=== PATIENT | male | born 1960 | race Caucasian/White ===

== ENCOUNTER 2018-05-14 06:27 | Day surgery (SDC) | payer OTHER ==
[2018-05-11 16:32] VITALS: BMI 29.0
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
[2018-05-14] MEDS ORDERED: KETAMINE HCL 500 MG/10 ML VIAL ONE (08:29)
[2018-05-14 08:38] LABS: BASO % 0.4 % (0-2.0); EOS % 1.5 % (0-4.5); HEMATOCRIT 41.2 % (35.4-49); HEMOGLOBIN 12.8 GM/dl (11.7-16.9); LYMPH % 30.3 % (8-40); MCH 26.9 pg (25.7-33.7); MCHC 31.2 g/dl (32.0-35.9); MEAN CELL VOLUME 86.1 fl (80-96); MEAN PLT VOLUME 8.7 fl (7.5-11.1); MONO % 8.4 % (3.8-10.2); NEUT % 59.4 % (42.8-82.8); PLATELET COUNT 218 K/MM3 (134-434); RBC 4.78 M/mm3 (4.00-5.60); RDW 13.4 % (11.9-15.9); WHITE BLOOD COUNT 5.5 K/mm3 (4.0-10.8)
[2018-05-14 08:51] LABS: ALBUMIN 3.9 g/dl (3.4-5.0); ALK PHOS 115 U/L (45-117); ANION GAP 8 MMOL/L (8-16); BILIRUBIN,TOTAL 0.3 mg/dl (0.2-1); BLOOD UREA NITROGEN 16 mg/dl (7-18); CALCIUM 9.8 mg/dl (8.5-10); CHLORIDE 111 mmol/L (98-107); CO2 23 mmol/L (21-32); CREATININE 1.2 mg/dl (0.55-1.3); GLUCOSE,RANDOM 105 mg/dl (74-106); MAGNESIUM 2.3 mg/dL (1.8-2.4); POTASSIUM 4.1 mmol/L (3.5-5.1); SGOT/AST 15 U/L (15-37); SGPT/ALT 17 U/L (13-61); SODIUM 142 mmol/L (136-145); TOT PROT 6.5 g/dl (6.4-8.2)
[2018-05-14 10:24] VITALS: TEMP 98.6
[2018-05-14 10:25] VITALS: BP 129/61; PULSE 74
--- NOTE | 2018-05-14 11:22 | EKG ---
Test Reason : Blood Pressure : / mmHG Vent. Rate : 082 BPM Atrial Rate : 082 BPM P-R Int : 136 ms QRS Dur : 080 ms QT Int : 364 ms P-R-T Axes : 060 045 047 degrees QTc Int : 425 ms NORMAL SINUS RHYTHM NORMAL ECG NO PREVIOUS ECGS AVAILABLE Confirmed by YANCY ANDINO, LONNIE ([id number]) on 05/14/2018 11:21:49 AM Referred By: Butch Olvera Confirmed By:LONNIE HAINES MD
== END 2018-05-14 10:20 | disposition home or self-care (01) ==
LOC: FECT 06:27
PROVIDERS: ATTEND Psychiatry & Neurology Psychiatry
PROC: GZB4ZZZ Other Electroconvulsive Therapy (ICD-10-PCS; principal; 2018-05-14 07:45)
DX: F31.62 Bipolar disorder, current episode mixed, moderate (principal)
CPT/HCPCS: 36415; 80053; 80178; 83735; 85025; 90870; 93005; 94760

== ENCOUNTER 2018-05-16 05:43 | Day surgery (SDC) | payer OTHER ==
[2018-05-14 11:06] VITALS: BMI 30.7
[2018-05-16 07:38] VITALS: TEMP 98
[2018-05-16] MEDS ORDERED: KETAMINE HCL SYRINGES 150 MG/3 ML ONE (07:53)
[2018-05-16] MEDS ORDERED: MIDAZOLAM HCL 2 MG/2 ML SINGLE DOSE VIAL ONE (07:53)
[2018-05-16 11:08] VITALS: BP 110/61; PULSE 74
== END 2018-05-16 09:45 | disposition home or self-care (01) ==
LOC: FECT 05:43
PROVIDERS: ATTEND Psychiatry & Neurology Psychiatry
PROC: GZB4ZZZ Other Electroconvulsive Therapy (ICD-10-PCS; principal; 2018-05-16 07:15)
DX: F31.62 Bipolar disorder, current episode mixed, moderate (principal)
CPT/HCPCS: 90870; 94760

== ENCOUNTER 2018-05-18 05:41 | Day surgery (SDC) | payer OTHER ==
[2018-05-14 13:22] VITALS: BMI 30.7
[2018-05-18 06:49] VITALS: TEMP 98.5
[2018-05-18] MEDS ORDERED: MIDAZOLAM HCL 2 MG/2 ML SINGLE DOSE VIAL ONE (07:25)
[2018-05-18] MEDS ORDERED: KETAMINE HCL SYRINGES 150 MG/3 ML ONE (07:25)
[2018-05-18 09:17] VITALS: BP 121/69; PULSE 68
[2018-05-18] MEDS ORDERED: ONDANSETRON 4 MG/2 ML VIAL IVPUSH PRN (09:59)
[2018-05-18] MEDS ORDERED: LACTATED RINGERS SOLUTION 1,000 ML IV SCH (10:00)
== END 2018-05-18 09:30 | disposition home or self-care (01) ==
LOC: FECT 05:41
PROVIDERS: ATTEND Psychiatry & Neurology Psychiatry
PROC: GZB4ZZZ Other Electroconvulsive Therapy (ICD-10-PCS; principal; 2018-05-18 07:15)
DX: F31.9 Bipolar disorder, unspecified (principal)
CPT/HCPCS: 90870; 94760

== ENCOUNTER 2018-05-31 05:43 | Day surgery (SDC) | payer OTHER ==
[2018-05-31 06:45] VITALS: BMI 31.9
[2018-05-31] MEDS ORDERED: KETAMINE HCL SYRINGES 150 MG/3 ML ONE (07:04)
[2018-05-31] MEDS ORDERED: MIDAZOLAM HCL 2 MG/2 ML SINGLE DOSE VIAL ONE (07:04)
[2018-05-31 08:33] VITALS: TEMP 98
[2018-05-31 10:34] VITALS: BP 120/66
[2018-05-31 10:37] VITALS: PULSE 78
== END 2018-05-31 09:20 | disposition home or self-care (01) ==
LOC: FECT 05:43
PROVIDERS: ATTEND Psychiatry & Neurology Psychiatry
PROC: GZB4ZZZ Other Electroconvulsive Therapy (ICD-10-PCS; principal; 2018-05-31 07:00)
DX: F31.9 Bipolar disorder, unspecified (principal)
CPT/HCPCS: 90870; 94760

== ENCOUNTER 2018-06-01 05:43 | Day surgery (SDC) | payer OTHER ==
[2018-06-01 06:57] VITALS: BMI 31.9
[2018-06-01] MEDS ORDERED: KETAMINE HCL SYRINGES 150 MG/3 ML ONE (07:08)
[2018-06-01] MEDS ORDERED: MIDAZOLAM HCL 2 MG/2 ML SINGLE DOSE VIAL ONE (07:28)
[2018-06-01] MEDS ORDERED: ONDANSETRON 4 MG/2 ML VIAL IVPUSH PRN (07:50)
[2018-06-01] MEDS ORDERED: oxyCODONE HCL 5 MG TABLET PO PRN (07:50)
[2018-06-01 09:34] VITALS: TEMP 97.8
[2018-06-01 09:36] VITALS: BP 103/63; PULSE 64
== END 2018-06-01 09:30 | disposition home or self-care (01) ==
LOC: FECT 05:43
PROVIDERS: ATTEND Psychiatry & Neurology Psychiatry
PROC: GZB4ZZZ Other Electroconvulsive Therapy (ICD-10-PCS; principal; 2018-06-01 07:00)
DX: F31.89 Other bipolar disorder (principal)
CPT/HCPCS: 90870; 94760

== ENCOUNTER 2018-06-04 05:40 | Day surgery (SDC) | payer OTHER ==
[2018-06-04 06:48] VITALS: TEMP 97.8; BMI 31.9
[2018-06-04] MEDS ORDERED: MIDAZOLAM HCL 2 MG/2 ML SINGLE DOSE VIAL ONE (07:07)
[2018-06-04] MEDS ORDERED: KETAMINE HCL SYRINGES 150 MG/3 ML ONE (07:07)
[2018-06-04 08:46] VITALS: BP 123/75; PULSE 73
== END 2018-06-04 09:15 | disposition home or self-care (01) ==
LOC: FECT 05:40
PROVIDERS: ATTEND Psychiatry & Neurology Psychiatry
PROC: GZB4ZZZ Other Electroconvulsive Therapy (ICD-10-PCS; principal; 2018-06-04 07:00)
DX: F31.62 Bipolar disorder, current episode mixed, moderate (principal)
CPT/HCPCS: 90870; 94760

== ENCOUNTER 2018-06-06 05:37 | Day surgery (SDC) | payer OTHER ==
[2018-06-06 06:53] VITALS: BMI 31.9
[2018-06-06] MEDS ORDERED: KETAMINE HCL SYRINGES 150 MG/3 ML ONE (07:06)
[2018-06-06] MEDS ORDERED: MIDAZOLAM HCL 2 MG/2 ML SINGLE DOSE VIAL ONE (07:11)
[2018-06-06 08:33] VITALS: TEMP 97.8
[2018-06-06 09:02] VITALS: BP 113/66; PULSE 66
== END 2018-06-06 09:25 | disposition home or self-care (01) ==
LOC: FECT 05:37
PROVIDERS: ATTEND Psychiatry & Neurology Psychiatry
PROC: GZB4ZZZ Other Electroconvulsive Therapy (ICD-10-PCS; principal; 2018-06-06 07:15)
DX: F31.62 Bipolar disorder, current episode mixed, moderate (principal)
CPT/HCPCS: 90870; 94760

== ENCOUNTER 2018-07-05 05:44 | Day surgery (SDC) | payer OTHER ==
[2018-06-26 17:35] VITALS: BMI 31.9
[2018-07-05] MEDS ORDERED: MIDAZOLAM HCL 2 MG/2 ML SINGLE DOSE VIAL ONE (08:06)
[2018-07-05] MEDS ORDERED: KETAMINE HCL SYRINGES 150 MG/3 ML ONE (08:06)
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
[2018-07-05 10:26] VITALS: PULSE 63; TEMP 98.2
[2018-07-05 10:27] VITALS: BP 114/60
== END 2018-07-05 10:20 | disposition home or self-care (01) ==
LOC: FECT 05:44
PROVIDERS: ATTEND Psychiatry & Neurology Psychiatry
PROC: GZB4ZZZ Other Electroconvulsive Therapy (ICD-10-PCS; principal; 2018-07-05 08:00)
DX: F31.89 Other bipolar disorder (principal)
CPT/HCPCS: 90870; 94760

== ENCOUNTER 2018-07-06 05:44 | Day surgery (SDC) | payer OTHER ==
[2018-06-26 17:38] VITALS: BMI 31.9
[2018-07-06 06:49] VITALS: TEMP 97.7
[2018-07-06] MEDS ORDERED: KETAMINE HCL 500 MG/10 ML VIAL ONE (07:23)
[2018-07-06] MEDS ORDERED: MIDAZOLAM HCL 2 MG/2 ML SINGLE DOSE VIAL ONE (07:23)
[2018-07-06 09:53] VITALS: BP 119/65; PULSE 69
== END 2018-07-06 10:15 | disposition home or self-care (01) ==
LOC: FECT 05:44
PROVIDERS: ATTEND Psychiatry & Neurology Psychiatry
PROC: GZB4ZZZ Other Electroconvulsive Therapy (ICD-10-PCS; principal; 2018-07-06 07:00)
DX: F33.2 Major depressive disorder, recurrent severe without psychotic features (principal)
CPT/HCPCS: 90870; 94760

== ENCOUNTER 2019-01-03 05:45 | Day surgery (SDC) | payer OTHER ==
[2019-01-03 07:56] VITALS: TEMP 98.2; BMI 31.2
--- NOTE | 2019-01-03 09:06 | HP ---
Admitting History and Physical - Admission Chief Complaint: present for ECT therapy History of Present Illness: 58 yrs old man ex smoker PAD s/p RT SFA stent 2006 at [facility] on Lipitor non complaint with ASA, Bipolar Depressive disorders H/O ECT last was in July 2018 , today present for ECT therapy denies any chest pain, SOB, Palpitation, , SERVIN, PND or orthopnea, no exertional chest pain , occasional Rt LE clarification. History Source: Patient - Past Medical History Cardiovascular: Yes: Other (PAD) Psych: Yes: Bipolar, Depression - Past Surgical History Additional Past Surgical History: Rt SFA stent - Smoking History Smoking history: Former smoker Have you smoked in the past 12 months: No If you are a former smoker, when did you quit?: 2012 - Alcohol/Substance Use Hx Alcohol Use: No - Social History Usual Living Arrangement: Yes: Alone ADL: Independent History of Recent Travel: No Home Medications - Allergies Allergies/Adverse Reactions: Allergies Allergy/AdvReac Type Severity Reaction Status Date / Time No Known Allergies Allergy Verified 05/16/18 15:52 - Home Medications Home Medications: Ambulatory Orders Lamotrigine [Lamictal Xr] 200 mg PO HS 05/11/18 [place] Carbonate [Eskalith -] 300 mg PO TID 05/11/18 Mirtazapine [Remeron -] 7.5 mg PO HS 05/11/18 Topiramate [Topamax] 50 mg PO HS 05/11/18 Zolpidem Tartrate [Ambien Cr] 12.5 mg PO HS PRN 05/11/18 Aripiprazole [Abilify] 5 mg PO HS 05/14/18 Propranolol HCl 10 mg PO HS 05/14/18 Metformin HCl [Glucophage] 500 mg PO BID 12/31/18 Review of Systems - Review of Systems Constitutional: denies: Chills, Diaphoresis, Fever, Lethargy, Loss of Appetite, Night Sweats, Unintentional Wgt. Loss, Weakness Eyes: denies: Blind Spots, Blurred Vision, Double Vision, Eye Pain, Floaters HENT: denies: Difficult Swallowing, Ear Discharge, Ear Pain, Epistaxis, Hearing Loss, Mouth Swelling, Nasal Congestion Neck: denies: Decreased ROM, Lumps, Pain on Movement, Stiffness Cardiovascular: denies: Chest Pain, Edema, Palpitations, Shortness of Breath Respiratory: denies: Cough, Exercise Intolerance, Hemoptysis, Orthopnea, PND, SOB on Exertion, Wheezing Gastrointestinal: denies: Abdominal Pain, Bloating, Constipation, Diarrhea Genitourinary: denies: Burning, Dysuria, Flank Pain, Frequency Musculoskeletal: denies: Back Pain, Crepitus, Decreased ROM Integumentary: denies: Bruising, Change in Color Neurological: denies: Change in LOC, Change in Speech, Confusion, Dizziness Endocrine: denies: Excessive Sweating, Flushing, Increased Hunger Hematology/Lymphatic: denies: Easily Bruised, Excessive Bleeding, Swollen Glands Psychiatric: reports: Altered Sleep Pattern, Depression. denies: Hallucinations , Panic, Paranoia, Suicidal Pain Intensity: 0 Physical Examination Vital Signs: Vital Signs Temperature 98.2 F 01/03/19 07:44 Pulse Rate 70 01/03/19 07:44 Respiratory Rate 18 01/03/19 07:44 Blood Pressure 110/66 01/03/19 07:44 O2 Sat by Pulse Oximetry (%) 97 01/03/19 07:44 Middle aged man comfortable not in distress HEENT: Mm moist, no anemia, PERRLA EOMI NECK: No JVd No Bruit CHEST: CTA B/L CVS: S1S2 R no m/g/r ABD: No distention, non tender Bs + EXT: No edema feet, pulses +, no calf tenderness PECAN MALLOW DIPPER: AOx3 non focal Labs: CBC, BMP LFTs reviewed from 12/21/2018 all are at base line Imaging - Results EKG: Report Reviewed (82 NSR nor nal intervals no ST T changes QTC 425) Problem List - Problems (1) Bipolar 1 disorder, depressed Assessment/Plan: Cont home meds and P ECT therapy as planned Problems reviewed: Yes Code(s): F31.9 - BIPOLAR DISORDER, UNSPECIFIED (2) PAD (peripheral artery disease) Assessment/Plan: Cont Sttain adv to Cont ASA as patient has Rt SFA stent. Problems reviewed: Yes Code(s): I73.9 - PERIPHERAL VASCULAR DISEASE, UNSPECIFIED Assessment/Plan 58 yrs old man with PAD s/p SFA stent Bipolar depressive disorders is here for ECT therapy no H/O seizures previously recived ECT in July 2018, patient is clinically stable no apprrent contraindication of ECT therapy . ECT therapy can be performed.
[2019-01-03] MEDS ORDERED: MIDAZOLAM HCL 2 MG/2 ML SINGLE DOSE VIAL ONE (09:12)
[2019-01-03] MEDS ORDERED: KETAMINE HCL 500 MG/10 ML VIAL ONE (09:13)
[2019-01-03 10:50] VITALS: BP 115/66; PULSE 69
--- NOTE | 2019-01-03 12:24 | EKG ---
Test Reason : Blood Pressure : / mmHG Vent. Rate : 069 BPM Atrial Rate : 069 BPM P-R Int : 138 ms QRS Dur : 076 ms QT Int : 380 ms P-R-T Axes : 057 037 032 degrees QTc Int : 407 ms NORMAL SINUS RHYTHM NORMAL ECG WHEN COMPARED WITH ECG OF 14-MAY-2018 07:13, NO SIGNIFICANT CHANGE WAS FOUND Confirmed by MI WALKER MD ([id number]) on 01/03/2019 12:24:41 PM Referred By: Butch Olvera Confirmed By:MI WALKER MD
== END 2019-01-03 11:00 | disposition home or self-care (01) ==
LOC: FECT 05:45 → FASU 05:45 → FECT 11:00
PROVIDERS: ATTEND Psychiatry & Neurology Psychiatry
PROC: GZB4ZZZ Other Electroconvulsive Therapy (ICD-10-PCS; principal; 2019-01-03 08:00)
DX: F32.9 Major depressive disorder, single episode, unspecified (principal)
CPT/HCPCS: 90870; 93005; 94760

== ENCOUNTER 2019-01-04 05:43 | Day surgery (SDC) | payer OTHER ==
[2019-01-03 10:13] VITALS: BMI 31.2
[2019-01-04] MEDS ORDERED: KETAMINE HCL 500 MG/10 ML VIAL ONE (07:11)
[2019-01-04] MEDS ORDERED: MIDAZOLAM HCL 2 MG/2 ML SINGLE DOSE VIAL ONE (07:11)
[2019-01-04 08:18] VITALS: PULSE 67; TEMP 97.8
[2019-01-04 08:50] VITALS: BP 113/66
== END 2019-01-04 08:40 | disposition home or self-care (01) ==
LOC: FECT 05:43
PROVIDERS: ATTEND Psychiatry & Neurology Psychiatry
PROC: GZB4ZZZ Other Electroconvulsive Therapy (ICD-10-PCS; principal; 2019-01-04 08:00)
DX: F25.9 Schizoaffective disorder, unspecified (principal)
CPT/HCPCS: 90870; 94760

== ENCOUNTER 2019-01-11 05:50 | Day surgery (SDC) | payer OTHER ==
[2019-01-11 06:50] VITALS: BMI 31.1
[2019-01-11] MEDS ORDERED: LACTATED RINGERS SOLUTION 1,000 ML IV SCH (08:00)
[2019-01-11] MEDS ORDERED: KETAMINE HCL 500 MG/10 ML VIAL ONE (08:17)
[2019-01-11] MEDS ORDERED: MIDAZOLAM HCL 2 MG/2 ML SINGLE DOSE VIAL ONE (08:17)
[2019-01-11 09:13] VITALS: TEMP 97.9
[2019-01-11 09:42] VITALS: BP 108/57; PULSE 83
== END 2019-01-11 09:45 | disposition home or self-care (01) ==
LOC: FECT 05:50
PROVIDERS: ATTEND Psychiatry & Neurology Psychiatry
PROC: GZB4ZZZ Other Electroconvulsive Therapy (ICD-10-PCS; principal; 2019-01-11 08:15)
DX: F31.62 Bipolar disorder, current episode mixed, moderate (principal)
CPT/HCPCS: 90870; 94760

== ENCOUNTER 2019-04-18 05:58 | Day surgery (SDC) | payer OTHER ==
[2019-04-17 16:45] VITALS: BMI 31.1
[2019-04-18] MEDS ORDERED: KETAMINE HCL 500 MG/10 ML VIAL ONE (07:33)
[2019-04-18] MEDS ORDERED: MIDAZOLAM HCL 2 MG/2 ML SINGLE DOSE VIAL ONE (07:33)
--- NOTE | 2019-04-18 08:03 | HP ---
CHIEF COMPLAINT: Bipolar disorder with depressive features PCP: Dr. Solis, [place], [place] Primary Psychiatrist: Sinan Temple Psychologist: Emelina Sorto[address] HISTORY OF PRESENT ILLNESS: 58 year-old male, with a PMH significant for peripheral arterial disease s/p right SFA stent, and bipolar disorder. He presents today for ECT. 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, vapes nicotine product Alcohol: no Drugs: no Allergies No Known Allergies Allergy (Verified 04/17/19 17:05) HOME MEDICATIONS: Home Medications Medication Instructions Recorded Lamotrigine [Lamictal Xr] 200 mg PO HS 05/11/18 [place] Carbonate [Eskalith -] 300 mg PO TID 05/11/18 Mirtazapine [Remeron -] 7.5 mg PO HS 05/11/18 Topiramate [Topamax] 50 mg PO HS 05/11/18 Zolpidem Tartrate [Ambien Cr] 12.5 mg PO HS PRN 05/11/18 Aripiprazole [Abilify] 5 mg PO HS 05/14/18 Propranolol HCl 10 mg PO HS 05/14/18 REVIEW OF SYSTEMS CONSTITUTIONAL: Absent: fever, chills, diaphoresis, generalized weakness, malaise, loss of appetite, weight change HEENT: Absent: rhinorrhea, nasal congestion, throat pain, throat swelling, difficulty swallowing, mouth swelling, ear pain, eye pain, visual changes CARDIOVASCULAR: Absent: chest pain, syncope, palpitations, irregular heart rate, lightheadedness , peripheral edema RESPIRATORY: Absent: cough, shortness of breath, dyspnea with exertion, orthopnea, wheezing, stridor, hemoptysis GASTROINTESTINAL: Absent: abdominal pain, abdominal distension, nausea, vomiting, diarrhea, constipation, melena, hematochezia GENITOURINARY: Absent: dysuria, frequency, urgency, hesitancy, hematuria, flank pain, genital pain MUSCULOSKELETAL: Absent: myalgia, arthralgia, joint swelling, back pain, neck pain SKIN: Absent: rash, itching, pallor HEMATOLOGIC/IMMUNOLOGIC: Absent: easy bleeding, easy bruising, lymphadenopathy, frequent infections ENDOCRINE: Absent: unexplained weight gain, unexplained weight loss, heat intolerance, cold intolerance NEUROLOGIC: Absent: headache, focal weakness or paresthesias, dizziness, unsteady gait, seizure, mental status changes, bladder or bowel incontinence PHYSICAL EXAMINATION Vital Signs - 24 hr 04/18/19 07:02 Temperature 98.1 F Pulse Rate 74 Respiratory 18 Rate Blood Pressure 120/65 O2 Sat by Pulse 97 Oximetry (%) GENERAL: Awake, alert, and fully oriented, in no acute distress. HEAD: Normal with no signs of trauma. EYES: Pupils equal, round and reactive to light, sclera anicteric, conjunctiva clear. LUNGS: Breath sounds equal, clear to auscultation bilaterally. No wheezes, and no crackles. No accessory muscle use. HEART: Regular rate and rhythm, normal S1 and S2 ABDOMEN: Soft, nontender, not distended MUSCULOSKELETAL: Normal range of motion at all joints. No bony deformities or tenderness. No CVA tenderness. UPPER EXTREMITIES: 2+ pulses, warm, well-perfused. No cyanosis. No clubbing. No peripheral edema. LOWER EXTREMITIES: 2+ pulses, warm, well-perfused. No calf tenderness. No peripheral edema. NEUROLOGICAL: Cranial nerves II-XII intact. Normal speech. ASSESSMENT/PLAN: 58 year-old male, with a PMH significant for peripheral arterial disease s/p right SFA stent, and bipolar disorder. He presents today for ECT. Cardiac --no cardiac history --Revised Cardiac Risk Index for Pre-Operative Risk: 0 points, 0.4% risk of major cardiac event Pulmonary --no pulmonary history Neurological --no neurological or neurosurgical history; no history of trauma Anesthesia --no reported problems with anesthesia ECT is a low risk procedure. The relative benefits of the planned procedure outweigh the relative risks for this patient at this time. Visit type - Emergency Visit Emergency Visit: No - New Patient This patient is new to me today: Yes Date on this admission: 04/18/19 - Critical Care Critical Care patient: No
[2019-04-18] MEDS ORDERED: LACTATED RINGERS SOLUTION 1,000 ML IV SCH (08:30)
[2019-04-18 09:18] VITALS: TEMP 98.4
[2019-04-18 10:03] VITALS: BP 112/76; PULSE 76
== END 2019-04-18 10:06 | disposition home or self-care (01) ==
LOC: FECT 05:58
PROVIDERS: ATTEND Psychiatry & Neurology Psychiatry
PROC: GZB4ZZZ Other Electroconvulsive Therapy (ICD-10-PCS; principal; 2019-04-18 07:15)
DX: F32.9 Major depressive disorder, single episode, unspecified (principal)
CPT/HCPCS: 90870; 94760

== ENCOUNTER 2019-04-19 06:13 | Day surgery (SDC) | payer OTHER ==
[2019-04-17 17:07] VITALS: BMI 31.1
[2019-04-19] MEDS ORDERED: KETAMINE HCL 500 MG/10 ML VIAL ONE (08:39)
[2019-04-19 09:40] VITALS: PULSE 65
[2019-04-19] MEDS ORDERED: ONDANSETRON 4 MG/2 ML VIAL IVPUSH PRN (09:46)
[2019-04-19] MEDS ORDERED: LACTATED RINGERS SOLUTION 1,000 ML IV SCH (10:00)
[2019-04-19 10:25] VITALS: BP 124/73; TEMP 98
== END 2019-04-19 10:26 | disposition home or self-care (01) ==
LOC: FECT 06:13
PROVIDERS: ATTEND Psychiatry & Neurology Psychiatry
PROC: GZB4ZZZ Other Electroconvulsive Therapy (ICD-10-PCS; principal; 2019-04-19 08:30)
DX: F31.62 Bipolar disorder, current episode mixed, moderate (principal)
CPT/HCPCS: 90870

== ENCOUNTER 2019-12-26 09:28 | Day surgery (SDC) | payer OTHER ==
--- OUTSIDE RECORDS SUMMARY | 2019-12-20 13:37 | XMS ---
:1960 Author Organization [facility] Care Team Providers Name Role Phone Leny Carreon MD Unavailable Unavailable Devin Unavailable Unavailable Devin ANDINO, Physician M Unavailable Unavailable Hillary Unavailable Unavailable Basciano, J Unavailable Unavailable Alasio, M Unavailable Unavailable Urgent Unavailable Unavailable Kike Mattson MD Unavailable Unavailable Kike Mattson MD Unavailable Unavailable Kike Mattson MD Unavailable Unavailable Kike Mattson MD Unavailable Unavailable Kike Mattson MD Unavailable Unavailable Kike Mattson MD Unavailable Unavailable Kike Mattson MD Unavailable Unavailable Kike Mattson MD Unavailable Unavailable Kike Mattson MD Unavailable Unavailable Kike Mattson MD Unavailable Unavailable Kike Mattson MD Unavailable Unavailable Kike Mattson MD Unavailable Unavailable Kike Mattson MD Unavailable Unavailable Re-disclosure Warning The records that you are about to access may contain information from federally- assisted alcohol or drug abuse programs. If such information is present, then the following federally mandated warning applies: This information has been disclosed to you from records protected by federal confidentiality rules (42 CFR part 2). The federal rules prohibit you from making any further disclosure of this information unless further disclosure is expressly permitted by the written consent of the person to whom it pertains or as otherwise permitted by 42 CFR part 2. A general authorization for the release of medical or other information is NOT sufficient for this purpose. The Federal rules restrict any use of the information to criminally investigate or prosecute any alcohol or drug abuse patient.The records that you are about to access may contain highly sensitive health information, the redisclosure of which is protected by Article 27-F of the [place] [facility] Public [facility] law. If you continue you may haveaccess to information: Regarding HIV / AIDS; Provided by facilities licensed or operated by the [facility] Office of Mental Health; or Provided by the [facility] Office for People With Developmental Disabilities. If such information is present, then the following [facility] mandated warning applies: This information has been disclosed to you from confidential records which are protected by state law. State law prohibits you from making any further disclosure of this information without the specific written consent of the person to whom it pertains, or as otherwise permitted by law. Any unauthorized further disclosure in violation of state law may result in a fine or long term sentence or both. A general authorization for the release of medical or other information is NOT sufficient authorization for further disclosure. Allergies and Adverse Reactions Type Description Substance Reaction Status Data Source(s ) Drug allergy No Known No Known [place] [facility] Medication Medication - [facility] Environmental Dust Dust Nuburtonce [facility] Allergy [facility] Miscellaneous Cats Cats Nuburtonce [facility] allergy [facility] Drug allergy No Known Allergies No Known Nuva [facility] Allergies [facility] Encounters Encounter Providers Location Date Indications Data Source(s ) Outpatient Attender: Savage 01/07/2020 [employer] [facility] Cesarig 11:30:00 AM Primary Care EST Outpatient 12/27/2019 [employer] - 10:00:00 AM Primary Care EDT Outpatient Attender: Savage 10/29/2019 [employer] Spirig 02:45:00 PM Primary Care EDT - 10/29/2019 11:59:00 PM EDT Patient discharged. Outpatient Attender: Odette 10/26/2019 04:16:00 PM NEXTGEN ([facility] Hillary EDT Medical - [facility] Medical [facility]) Outpatient Attender: Julián 10/24/2019 09:50:00 AM NEXTGEN ([facility] BascianoReferrer: EDT Medical - [place] Jone Gallego Medical [facility]) BascianoConsultant: Care Urgent Outpatient 10/18/2019 12:00:00 PM [facility] EDT - 10/18/2019 Primary Care 11:59:00 PM EDT Patient discharged. Outpatient Attender: Physician 09/02/2019 08:17:[address] [facility] Devin MDAdmitter: EDT - 09/02/2019 Ashwin Benitez Physician Savage Beltran 11:59:00 PM EDT Medical Center MDConsultant: Leny Carreon MD Patient discharged. Outpatient Attender: Physician DANIE 08/31/2019 [facility]04[facility] 08/31/2019 Heather Benitez MDAdmitter: Physician 11:59:59 PM EDT Medical Center Savage Beltran MD Patient discharged. Outpatient 08/19/2019 04:13:00 PM EDT - [facility] Primary Care 08/19/2019 11:59:00 PM EDT Patient discharged. Outpatient Attender: Nancy 08/15/2019 10:13:00 AM KEZIAGEN ([facility] Mattson MD EDT Medical [facility] [place] [facility]) Outpatient Attender: Rabia 08/15/2019 12:00:00 AM NEXTGEN ([facility] AlasioReferrer: Nancy EDT Med ica - [place] Jone Mattson MD [facility]) Outpatient Attender: Savage 08/13/2019 10:15:00 AM [facility] [employer] [facility] EDT - 08/13/2019 Primary Care 11:59:00 PM EDT Patient discharged. Outpatient Attender: Savage Beltran 08/13/2019 10:15:00 AM [employer] [facility] EDT - 08/13/2019 11:59:00 Primary Care PM EDT Patient discharged. Outpatient Attender: Savage Beltran 08/13/2019 10:15:00 AM [facility] JOYCELYN EDT - 08/13/2019 11:59:00 Primary Care PM EDT Patient discharged. Outpatient Attender: Physician 08/09/2019 09:12:03 AM [facility] Savage Beltran EDT - 08/09/2019 Heather Benitez MDAdmitter: Physician 11:59:00 PM EDT Medical Center Savage Beltran MD Patient discharged. Outpatient Attender: Nancy 02/15/2019 07:23:00 PM NEXTGEN ([facility]itz Mattson MD [facility] Medical - [facility]) Outpatient Attender: Nancy 12/30/2018 02:50:00 PM KEZIAGEN (Fitz Mattson MD EDT [facility]) Insurance Providers Payer name Policy type Policy ID Covered Covered democrat's Policy P lexus / Coverage democrat ID relationship to Cruz Inf ormation type cruz COMM [id number] Self [id number] FIDL [place] [id number] Care [place] Individual COMM [id number] Self [id number] COMM [id number] Self [id number] COMM [id number] Self [id number] COMM [id number] Self [id number] COMM [id number] Self [id number] ASAEL [id number] BR [id number] EXCHANGE ASAEL [id number] SP [id number] EXCHANGE ASAEL CARE [id number] 1 [id number] ASAEL [id number] SP [id number] EXCHANGE ASAEL [id number] SP [id number] EXCHANGE ASAEL [id number] SP [id number] EXCHANGE MAGNACARE [id number] SELF [id number] Problems, Conditions, and Diagnoses Code Display Name Description Problem Type Effective Data Dates Source(s) Z11.59 Encounter for Encounter for Diagnosis 10/24/2019 NEXTGEN screening for other laboratory testing 09:50:00 AM (Fitz viral diseases for COVID-19 virus EDT Pr dical - [facility]) N52.9 Male erectile Male erectile Diagnosis 09/02/2019 [place] dysfunction, dysfunction, 08:17:00 AM Health - unspecified unspecified EDT [facility] I73.9 Peripheral vascular Peripheral vascular Diagnosis 020 [place] disease, disease, 08:17:00 AM Health - unspecified unspecified EDT [facility] R99 Ill-defined and Ill-defined and Diagnosis 08/31/2019 Nuva nce unknown cause of unknown cause of 11:04:00 AM H ealth - mortality mortality EDT [facility] Z20.828 Contact with and Contact with and Diagnosis 08/15/2019 NE XTGEN (suspected) (suspected) 10:13:00 AM ([facility] exposure to other exposure to other EDT [facility] viral communicable viral communicable [facility]) I70.213 Atherosclerosis of Atherosclerosis of Diagnosis 0 [place] kar[place] arteries of kar[place] arteries of 09:12:00 AM Health - extremities with extremities with EDT Va ssar intermittent intermittent Brothers claudication, claudication, Medical bilateral legs bilateral legs Center Surgeries/Procedures Procedure Description Date Indications Data Source(s) OFFICE/OUTPATIENT OFFICE/OUTPATIENT 10/24/2019 NEXTG EN ([facility] VISIT EST VISIT EST 12:00:00 AM [facility]) SARS-COV-2 COVID-19 SARS-COV-2 COVID-19 08/15/2019 N EXTGEN ([facility] AP HTTA AP HTTA 12:00:00 AM [facility]) Results ID Date Data Source [id number] 11/25/2019 02:30:00 PM EDT [facility] Name Value Range Interpretation Code Description Data Janel rce(s) Supporting Document(s ) SARS-COV-2 [facility] RESP Diagnostics QL ARTURO+PROBE This lab was ordered by [facility] and reported by [employer] [facility] University[facility]elsea. ID Date Data Source [id number] 10/24/2019 10:11:00 AM EDT [facility] Name Value Range Interpretation Code Description Data Janel rce(s) Supporting Document(s ) COV2 [facility] This lab was ordered by [facility] and reported by Nabto Jean Marie. ID Date Data Source [id number] 09/11/2019 11:28:00 AM EDT [facility] Name Value Range Interpretation Description Data Sup porting Code Source(s) Document(s ) SARS [facility] coronavirus 2 RNA This lab was ordered by [facility] See green d reported by [facility]. ID Date Data Source [id number] 09/02/2019 12:23:00 PM EDT [facility] Patient Name: ANTOINETTE ANDINO, PAULMRN: [id number] Interventional RadiologyACCESSION EXAM DATE/TIME PROCEDURE ORDERING PROVIDER [id number] 09/02/2019 12:06 EDT IR ANGIO EX ANNALISE Devin ANDINO, Savage Escudero (Verified) MReason For Exam(IR ANGIO EX ANNALISE) PVD (peripheral vascular disease), Erectile dysfunctionReportIndication for Procedure:Preoperative Diagnosis:1. Bilateral lower extremity arterial jonatan ication2. Erectile dysfunctionPostoperative Diagnosis:SameProcedure:1.1. Ultrasound- guided axis patent right common femoral artery (hardcopy image taken saved in EM R the)2. Aortoiliac angiogram3. Left SFA/popliteal balloon angioplasty with 5 x 150 mm drug-eluting balloon4. Left common iliac artery stenting with 8 x 39 a mill imeter VBX stent5. right common iliac artery stenting with 8 x 39 mm VBX stent6. Left internal iliac artery balloon angioplasty with 3 x 40 mm balloonSurgeon(s):Savage Beltran MDAnesthesia:Local/sedationAnesthesiolog ist:Complications:NoneProcedure Performed:After all anesthetic preparati on completed both groins are prepped and draped in usual sterile manner. Timeout was taken. Under ultrasound guidance and local anesthesia we accessed a patent ri ght common femoral artery retrograde, over micropuncture sheath placed placed a Andrea tson wire subsequent 5 Honduran sheath and a flush catheter in the perirenal aorta. A ortoiliac angiogram was obtained. With a flush catheter Bentson wire negotiated t he aortic bifurcation placed the catheter in the left external iliac artery. A left l ower cineangiogram obtained. A right lower cineangiogram was obtained through the r ight femoral sheath.FINDINGS:Single renal arteries without stenosis. Infrarenal ao rta is mildly calcified without significant stenosis. Bilateral moderate to high-gra de proximal common iliac artery stenosis. Right internal iliac arteries occluded, left internal iliac artery is moderately diseased with critical stenosis to the a nterior division. External iliac arteries are patent bilaterally.Left lower cineangiog coleman shows a patent common femoral profunda femoris SFA. There is a proximal SFA jonathan nt that's patent with very mild stenosis proximally. There sequential moderate hi gh-grade stenosis and run Holger's canal and above-knee popliteal artery. Below-knee popliteal arteries patent. There is three-vessel runoff via the anterior pos terior and peroneal artery with mild disease in the anterior tibial artery.Right lowe r cineangiogram shows a patent common femoral profunda femoris and very mild disease i n the SFA. The right popliteal arteries patent. The right anterior posterior and peroneal arteries are patent.Intervention:The patient was give n 6000 IV heparin. Over an Amplatz wire we placed a 7 Honduran 45 cm destination malik th in the left SFA. We cross the lesion with a [employer] wire the SFA. We balloon angio plastied the popliteal sinus SFA lesion with a 5 x 150 mm drug-eluting balloon inflat ed for 90 seconds with excellent angiographic result.She's was withdrawn to the aortic bifurcation. Under angiographic guidance we deployed a 8 x 39 mm VBX stents in the l eft common iliac artery and the 8 x 39 mm VBX stent into the right common iliac artery both with excellent angiographic result. She's was readvanced into the left commo n iliac artery. We selected then the left internal iliac artery and its anterior b ranch with a Glidewire and a glide catheter. We exchanged to a Farrell core wire. We u sed a 3 x 60 mm balloon to balloon angioplasty anterior division of the int ernal iliac artery with excellent angiographic result no evidence of disse ction or extravasation and very brisk flow to the pelvis.We exchanged to a short 6 Raimundo nch sheath. Minx closure of the right common femoral artery was obtained with good pu ncture hemostasis.CONCLUSION:1. Bilateral common neck artery stenosis successfully stented with 8 x 39 mm VBX stents2. Sequential high-grade left SFA/popliteal stenosis successfully balloon angioplasty with a 5 x 150 mm drug-eluting balloon3. Successful balloon angioplasty of the anterior division of the left internal i liac artery with 3 x 60 mm balloon4. Right internal iliac artery occlusion5. Bilate ral three-vessel runoff.Contrast:186 cc Final Dictated: Savage Beltran MD 09/02/19 12:15Signed: Savage Beltran MD 09/02/19 12:23Transcribed by: AMS Name Value Range Interpretation Code Description Data Janel rce(s) Supporting Document(s ) ID Date Data Source [id number] 09/02/2019 10:07:00 AM EDT [facility] Ashwin Brothers [id number]} [facility] Patient: ANTOINETTE , F RANK Age: 58 years Sex: Male : 1960 Associated Diagnoses: None Author: Lauri ANDINO, Anca Betancourt Basic Information Allergies: Allergic Reactions (Selected)Severity Not Documen tedCats- No reactions were documented.Dust- No reactions were documented.No Known Me dication Allergies. Medications Current medications: (Selected) Documented Medi cationsDocumentedAmbien CR 12.5 mg oral tablet, extended release: mg, tab, Oral, QHS, 0 Refill(s)Remeron 45 mg oral tablet: mg, tab, Oral, QHS, 0 Refill(s)Topamax: 200 mg, Oral, BID, 0 Refill(s)Vraylar: Oral, Daily, 0 Refill(s)aspirin: 81 mg, Oral, Daily, 0 Refill(s)lamotrigine 200 mg oral tablet: mg, tab, Oral, BID, 0 Refill(s)l ithium 600 mg oral capsule: See Instructions, cap mg Oral TID, 0 Refill(s)propranolol: 10 mg, Oral, BID, 0 Refill(s). VS/Measurements Vital Signs 09/02/2019 8: 59 EDT Temperature Oral 97.2 DegF Systolic Blood Pressure 127 mmHg Diastolic Blood Pressure 79 mmHg Mean Arterial Pressure, Cuff 95 mmHg Peripheral Pulse Rate 69 b pm , Vital Signs (last 24 hrs) Last Charted Temp Oral 97.2 Deg F (SEP 01 08:59)Heart Rate Peripheral 69 bpm (SEP 01 08:59)SBP 127 mmHg ( 08:59)DBP 79 mmHg (SEP 01 08:59)SpO2 96 % (SEP 01 08:59)Aubreyig ht 170 cm (SEP 01 08:59)BMI 31.45 (SEP 01 08:59), Measurements from [facility] eet : Measurements 09/02/2019 8:59 EDT Clinical Weight 90.9 kg Body Mass Index Measured 31.45 kg/m2 Height/Length Measured 170 cm Past Medical History/Problems: All ProblemsBipolar 1 disorder / [id number] / ConfirmedCOPD (chronic obstructive pul monary disease) / [id number] / ConfirmedPVD (peripheral vascular disease) / [id number] / Confirmed. CRI - baseline Cr 1.3 Procedure history: Angiogram performed by Savage Beltran MD on 08/10/2010 at 49 Years.Rt knee after accident.Right ankle after accident.Left knee after accident.. 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 Former smoker Concerns about tobacco us e in household: No Type: Cigarettes Started at age: 20.0 Years Stopped at age: 53 Y earsBlood Vxfbbmpmdv65/29/2020 Blood Management Level Accepts blood. Result s review: Lab results (data) 09/02/2019 9:24 EDT WBC 5.1 x10(3)/mcL RBC 4.97 x10(6)/ mcL Hgb 13.3 gm/dL LOW Hct 41.8 % MCV 84 fL MCH 26.8 pg MCHC 31.9 gm/dL LOW R DW 13.7 % Platelet 179 x10(3)/mcL MPV 8.5 fL Glucose Lvl 109 mg/dL HI BUN 13.2 mg/dL Creatinine 1.28 mg/dL HI eGFR- AA 70 mL/min/1.73m2 eGFR-ARTURO 58 mL/min/1.73m2 LOW BUN/Creat Ratio 10.3 ratio Sodium Lvl 141 mmol/L Potassium Lvl 3.9 mmol/L Ch loride 114 mmol/L HI CO2 21 mmol/L LOW AGAP 5 Calcium Lvl 9.4 mg/dL Total Pro tein 5.9 gm/dL LOW Albumin Lvl 3.5 gm/dL Glob 2.4 gm/dL A/G Ratio 1.5 ratio 08/30 11:32 EDT COVID-19 NEGATIVE . Assessment Review of Systems Constitutio nal: No fevers, infections or nightime sweating. Cardiovascular: No changes i n METS or anginal symptoms from baseline. Pulmonary: No changes in shortness of br eath, cough, dyspnea on exertion or auxillary oxygen requirements from baseline. Gas trointestinal: No change in reflux symptoms from baseline. Hematologic: No changes in bruising or bleeding from baseline. Musculoskeletal: No changes in cervical motion instability, myalgias, or extremity range of motion from baseline. Physica l Exam Cardiovascular: Regular rate/rhythm. Respiratory: Lungs clear to auscultation bilaterally. Airway Assessment Dentition: Normal. Teeth: Normal. Airway: No ab normalities noted. Mallampati Classification: I. Anesethesia Evaluat ion Anesthesia History: Patient History No Significant History, Family History No S ignificant History. Pre-op Information Reviewed: All current medications, perti nent results/ documents reviewed. Risks / Benefits: Risks, benefits, and alternati ves discussed with patient/guardian who wishes to proceed with plan.. Mental S tatus: Alert and Oriented X3. NPO: Since midnight. Discussed Anesthesia Plan (s ): MAC. ASA Classification: III.I73.9Peripheral vascular disease, un xrkjdsyywX04.9Male erectile dysfunction, [id number], extremity, bilateral, radiological supervision and interpretation09/02/2019 08:47:09 Commen t by: Monica Aguirre scanned ins verified info got verbal consent 09/02/2019 08:35:46 Comment by: Monica Aguirre pd copay cr edit card 08:02:39 Comment by: Beryl Dunn Exch. verified, Co-Payment $10 0.00 for OP IVR. $600 rem of $1200 family ded. PE unavailable. [phone] Name Value Range Interpretation Code Description Data Janel rce(s) Supporting Document(s ) ID Date Data Source [id number] 09/02/2019 10:08:00 AM EDT [facility] Name Value Range Interpretation Code Description Data Janel rce(s) Supporting Document(s ) INR 0.9 ratio 0.9-1.2 NO [facility] Indications INRProphylaxis of venous thromo-embolism: Non-hip surgery..... ..........................1.5 - 2.5 Hip surgery................................. ..2.0 - 3.0Deep Vein Thrombosis or Pulmonary Embolism........2.0 - 3.0Prevention of s ystemic embolism in valvular heart disease, tissue prosthetic heart valvesor acute SC.......................................2.0 - 3.5Prevention of embolism in mechanical heartvalves or recurrent systemic embolism.............3.0 - 4.5 PT 10.9 second(s) 10.2-12.9 NO [facility] ID Date Data Source [id number] 09/02/2019 10:07:00 AM EDT [facility] Name Value Range Interpretation Description Data Sup porting Code Source(s) Document(s ) Glucose Lvl 109 65-99 [facility] mg/dL [facility] BUN 13.2 6.0-20.0 NO [place] mg/dL [facility] Creatinine 1.28 0.70-1.2 HI [place] mg/dL 0 [facility] BUN/Creat 10.3 7.0-29.0 NO [place] Ratio ratio [facility] Sodium Lvl 141 136-145 NO [place] mmol/L [facility] Potassium Lvl 3.9 3.5-5.1 NO [place] mmol/L [facility] Chloride 114 98-107 HI [place] mmol/L [facility] CO2 21 23-29 LO [place] mmol/L [facility] AGAP 5 5-15 NO [place] [facility] Calcium Lvl 9.4 8.6-10.0 NO [place] mg/dL [facility] Total Protein 5.9 6.0-8.3 LO [place] gm/dL [facility] Albumin Lvl 3.5 3.5-5.0 NO [place] gm/dL [facility] Glob 2.4 2.0-4.5 NO [place] gm/dL [facility] A/G Ratio 1.5 1.0-2.2 NO [place] ratio [facility] Bili Total 0.4 0.3-1.2 NO [place] mg/dL [facility] Alk Phos 72 IU/L 38-126 [facility] AST 15 IU/L 15-41 NO [facility] ALT 17 IU/L 7-40 NO [facility] ID Date Data Source [id number] 09/02/2019 10:00:00 AM EDT [facility] Added by Discern Rule GLB_ADD_GFR_CMP Name Value Range Interpretation Code Description Data Janel rce(s) Supporting Document(s ) eGFR-AA 70 >=60 NO [facility] mL/min/1.7 - [address] The MDRD 4-Variable IDMS traceable Equat ion for non- individuals is used to calculate the estimated glomerul ar filtration rate (GFR). To estimate the GFR for Americans, multiply the prov ided GFR result by 1.16. The MDRD 4-Variable IDMS traceable Equation is validated in individuals 18 years of age or older. It is less accurate in patients with extremes of muscle mass, restriction of dietary protein, ingestion of creatine, extra-re nal metabolism of creatinine, or treatment with medications that affect renal tubul ar creatinine secretion.GFR Categories in Chronic Kidney Disease (CKD)GFR Category : GFR (mL/min/1.73 m2): Interpretation: G1 90 or greater Normal or high* G2 60-89 Mild decrease*G3a 45-59 Mild to moderate [id number] 30-44 Moderate to severe decreaseG4 15-29 Severe decreaseG5 14 or less Kidney failure eGFR-ARTURO 58 mL/min/1.73m2 >=60 LO [facility] The MDRD 4-Variable IDMS traceable Equat ion for non- individuals is used to calculate the estimated glomerul ar filtration rate (GFR). To estimate the GFR for Americans, multiply the prov ided GFR result by 1.16. The MDRD 4-Variable IDMS traceable Equation is validated in individuals 18 years of age or older. It is less accurate in patients with extremes of muscle mass, restriction of dietary protein, ingestion of creatine, extra-re nal metabolism of creatinine, or treatment with medications that affect renal tubul ar creatinine secretion.GFR Categories in Chronic Kidney Disease (CKD)GFR Category : GFR (mL/min/1.73 m2): Interpretation: G1 90 or greater Normal or high* G2 60-89 Mild decrease*G3a 45-59 Mild to moderate [id number] 30-44 Moderate to severe decreaseG4 15-29 Severe decreaseG5 14 or less Kidney failure ID Date Data Source [id number] 09/02/2019 09:52:00 AM EDT [facility] Name Value Range Interpretation Description Data Sup porting Code Source(s) Document(s ) WBC 5.1 4.0-10.5 NO [facility] x[facility] RBC 4.97 4.70-6.00 NO vance x10(6)/[facility] Hgb 13.3 13.5-17.0 LO [place] gm/dL [facility] Hct 41.8 % 38.0-51.0 NO [facility] MCV 84 fL 80-98 NO [facility] MCH 26.8 pg 26.0-34.0 NO [facility] MCHC 31.9 32.0-36.0 LO [place] gm/dL [facility] RDW 13.7 % 11.0-15.0 NO [facility] Platelet 179 150-400 NO [facility] x10(3)/[facility] MPV 8.5 fL 8.5-13.0 NO [facility] [facility] ID Date Data Source [id number] 08/31/2019 11:32:00 AM EDT [facility] Name Value Range Interpretation Description Data Sup porting Code Source(s) Document(s ) SARS CoV-2 [facility] Interpretation This lab was ordered by [facility] and reported by [employer]. ID Date Data Source [id number] 08/31/2019 11:32:00 AM EDT [facility] Name Value Range Interpretation Code Description Data Janel rce(s) Supporting Document(s ) 2019-nCoV [facility] RNA XXX ARTURO+probe- Imp This lab was ordered by [facility] [employer] and reported by [facility] [employer]. ID Date Data Source [id number] 09/01/2019 03:07:00 AM EDT [facility] Name Value Range Interpretation Code Description Data Janel rce(s) Supporting Document(s ) COVID-19 NA [facility] SARS CoV-2 RNA NEGATIVE (NOT DETECTED)Ne gative results do not preclude SARS-CoV-2 infection and should notbe used as the s ole basis for patient management decisions. Negativeresults must be combined with cl inical observations, patient history,and epidemiological information. Optimum spe cimen types and timingfor peak viral levels during infections caused by SARS-CoV-2 h ave notbeen determined. Collection of multiple specimens or types ofspecimens may be necessary to detect virus. Improper specimencollection and handling, sequenc e variability under primers/probes,or organism present below the limit of dete ction may lead to falsenegative results. Positive and negative predictive values oftesting are highly dependent on prevalence. False negative testresults are more like ly when prevalence is high.The expected result is Negative (Not Detected).The SA RS-CoV-2 test is intended for the qualitative detection ofnucleic acid from SARS-CoV-2 in nasopharyngeal and oropharyngealswab samples from patients who meet COVID-19 clinical and/orepidemiological criteria. For lower respiratory tract specimens,the as say is submitted for authorization by FDA under an EmergencyUse Authorization (EUA ). Testing methodology is Real-Time PCR (RT-PCR)using high-throughput technology . If received as separate collectiondevices, nasopharyngeal and oropharyngeal specime ns are combined foranalysis.Test results must be correlated with clinical presentation andevaluated in the context of other laboratory ad epidemiologic data.This te st has not been Food and Drug Administration (FDA) cleared orapproved and has been au thorized by FDA under an Emergency UseAuthorization (EUA).[facility] [employer] is certified under the ClinicalLaboratory Improvement Amendment s of 1988 (CLIA), 42 U.S.C. [id number], to perform high complexity tests.Performing Lab : [facility] [place] [id number] Directo r:Dr. Chidi [facility] CLIA Number:[id number] ID Date Data Source [id number] 08/15/2019 12:00:00 AM EDT [facility] ([facility]) Name Value Range Interpretation Code Description Data Janel rce(s) Supporting Document(s ) COVID19 [facility] Results (On license of [facility]) This lab was ordered by [facility] and reported by [facility]. ID Date Data Source [id number] 08/09/2019 11:55:00 AM EDT [facility] Patient Name: ANTOINETTE ANDINO, PAULMRN: [id number] Computed TomographyACCESSION EXAM DATE/TIME PROCEDURE ORDERING PROVIDER [id number] 08/09/2019 09:53 EDT [facility] Abdomen Aorta Savage Beltran MD (Verified) ANNALISE Lower EXT MReason For Exam(CTA Ab domen Aorta ANNALISE Lower EXT) Atherosclerosis of [place] arteries of extremities withinter mittent claudication, bilateral legs, Erectile dysfunctionReportPROCEDURE: Com puted Tomographic Angiography Abdominal Aorta and Bilateral Iliofemoral Lower Extremit y With ContrastCLINICAL HISTORY: Peripheral vascular diseaseSCRIPT INFORMATION: athe rosclerosis of extremitiesCOMPARISON: None.TECHNIQUE:Computed Tomography Angio graphy was performed with intravenous contrast timed to maximum opacification of the arteries of the abdomen, pelvic and lower extremities. Two dimensional and t hree dimensional reconstructions were performed. Enteric contrast administered for this exam.FINDINGS:VASCULATURE:The abdominal aorta is of normal caliber. Th ere is moderate calcified and noncalcified atherosclerotic plaque without significa nt stenosis.The celiac, superior mesenteric, bilateral renal and inferior mesenteric arteries are patent with mild scattered calcified and noncalcified atheroscleros is seen.LEFT LOWER EXTREMITY:There is moderate calcified and noncalcified athe rosclerotic disease of the left common and external iliac arteries without signific ant stenosis.There is mild calcified and noncalcified atherosclerotic disease of the common femoral artery without significant stenosis. Status post stenting of the pr oximal superficial femoral artery which is widely patent. There is moderate calcifi ed and noncalcified atherosclerotic disease of the distal superficial femoral artery with multifocal moderate stenoses seen measuring up to approximately 50%. There is mild calcified and noncalcified atherosclerotic disease of the popliteal artery a focal moderate stenosis of approximately 50% at the level of the fe moral condyles. There is a mild stenosis of approximately 40% at the distal poplitea l artery just proximal to the origin of the anterior tibial artery.The popliteal tri furcation is patent.There is three-vessel runoff to the foot. Scattered atheroscle rotic calcifications are seen within the peroneal and posterior tibial arteries.R IGHT LOWER EXTREMITY:There is heavy calcified and noncalcified atherosclerotic disease of the common iliac artery resulting in mild stenosis of approximately 40%. Status po st stenting of the right external iliac artery, which is widely patent. There is moderate calcified and noncalcified atherosclerotic disease of the common fe moral artery without significant stenosis. There is mild calcified and noncalcified atherosclerotic disease of the distal superficial femoral artery without signi ficant stenosis. There is moderate calcified and noncalcified atherosclerotic disease of the popliteal artery resulting in a short segment stenosis of up to 40% at the lev el of the distal femoral diaphysis/metadiaphysis.The popliteal tr ifurcation is patent.There is three-vessel runoff to the foot. Scattered atheroscle rotic calcifications of the anterior tibial, posterior tibial and peroneal arteries a re seenLUNG BASES:The visualized portions of the lung bases are clear.LIVER:The liver is normal in size and contour.There is no enhancing mass identified and the portal vein is patent.BILIARY SYSTEM:There is no biliary ductal dilatation. The gallbladd er is grossly unremarkable.SPLEEN/PANCREAS:The spleen is grossly unremarkable.The pancreas is grossly unremarkable.ADRENALS/KIDNEYS:Th e adrenals are unremarkable.The kidneys are unremarkable.BOWEL:There is no evidence for small bowel obstruction.There is no evidence for free intraperitoneal air.St ool is scattered throughout the colon.The appendix is normal in appearance.LYMPH N ODES/FLUID:There is no suspicious lymphadenopathy.There is no significant abdominal ascites.BODY WALL:No body wall mass or hernia is identified.BLADDER/GENITALS :The urinary bladder is grossly unremarkable.The seminal vesicles are sy mmetric and the prostate is grossly unremarkable.BONES:Multilevel degenerati ve disc disease.IMPRESSION:Bilateral lower extremity peripheral vascular disease as above. Three-vessel runoff to the foot bilaterally.Thank you for allowing us to participate in the evaluation of this patient. Final Dictated: Cy Key DO 08/09/19 11:12Signed: Cy Key DO 08/09/19 11:55 Transcribed by: FRANKIEK Name Value Range Interpretation Code Description Data Janel rce(s) Supporting Document(s ) Procedure Social History Code Duration Value Status Description Data Source(s ) Smoking 06/11/2019 Ex-smoker completed Ex-smoker (finding) [employer] - 11:36:50 AM EDT (finding) [facility]
--- OUTSIDE RECORDS SUMMARY | 2019-12-26 09:34 | XMS ---
:1960 Author Organization [facility] Care Team Providers Name Role Phone Leny [...] is protected by Article 27-F of the [facility] Public Health law. If you continue you may haveaccess to information: Regarding HIV / AIDS; Provided by facilities licensed or operated by the [facility] Office of Mental Health; or Provided by the [facility] Office for People With Developmental Disabilities. If such information is present, then the following [facility] mandated warning applies: This information has been [...] law may result in a fine or fci sentence or both. A general authorization for the release of medical or other information is NOT sufficient authorization for further disclosure. Allergies and Adverse Reactions Type Description Substance Reaction Status Data Source(s ) Drug allergy No Known No Known [facility] - [facility] Environmental Dust Dust [facility] Allergy [facility] Miscellaneous Cats Cats Nudyerce [facility] allergy [facility] Drug allergy No Known Allergies No Known Nuva [facility] Allergies [facility] Encounters Encounter Providers Location Date Indications Data Source(s ) Outpatient Attender: Savage 01/07/2020 [facility] Devin 11:30:00 AM Primary Care EST Outpatient 12/27/2019 [facility] 10:00:00 AM Primary Care EDT Outpatient Attender: Savage 10/29/2019 [facility] Spirig 02:45:00 PM Primary Care EDT - 10/29/2019 11:59:00 PM EDT Patient discharged. Outpatient Attender: Odette 10/26/2019 04:16:00 PM [facility] ([facility] Hillary EDT Medical - [facility] Medical [facility]) Outpatient Attender: Julián 10/24/2019 09:50:00 AM N[facility] ([facility] BascianoReferrer: EDT Medical - [place] Holdentnkelsea Gallego Medical [facility]) BascianoConsultant: Care Urgent Outpatient 10/18/2019 12:00:00 PM [facility] EDT - 10/18/2019 Primary Care 11:59:00 PM EDT Patient discharged. Outpatient Attender: Physician 09/02/2019 08:17:47 AM [facility] Savage Beltran MDAdmitter: EDT - 09/02/2019 Ashwin Benitez Physician Savage Beltran 11:59:00 PM EDT Medical Center MDConsultant: Leny Carreon MD Patient discharged. Outpatient Attender: Physician DANIE 08/31/2019 11:04:23 [facility] - 08/31/2019 Heather Benitez MDAdmitter: Physician 11:59:59 PM EDT Medical Center Savage Beltran MD Patient discharged. Outpatient 08/19/2019 04:13:00 PM EDT - [facility] Primary Care 08/19/2019 11:59:00 PM EDT Patient discharged. Outpatient Attender: Nancy 08/15/2019 10:13:00 AM KEZIAGEN (Fitz Mattson MD EDT [facility] Outpatient Attender: Rabia 08/15/2019 12:00:00 AM NEXTGEN ([facility] AlaleidaoReferrer: Nancy EDT Med ica - [place] Jone Mattson MD Medical [facility]) Outpatient Attender: Savage 08/13/2019 10:15:00 AM [facility] EDT - 08/13/2019 Primary Care 11:59:00 PM EDT Patient discharged. Outpatient Attender: Savage Beltran 08/13/2019 10:15:00 AM [facility] EDT - 08/13/2019 11:59:00 Primary Care PM EDT Patient discharged. Outpatient Attender: Savage Beltran 08/13/2019 10:15:00 AM [facility] JOYCELYN EDT - 08/13/2019 11:59:00 Primary Care PM EDT Patient discharged. Outpatient Attender: Physician 08/09/2019 09:12:03 AM [facility] Savage Beltran EDT - 08/09/2019 Heather Benitez MDAdmitter: Physician 11:59:00 PM EDT Medical Center Savage Beltran MD Patient discharged. Outpatient Attender: Nancy 02/15/2019 07:23:00 PM NEXT[facility] (Fitz Mattson MD [facility] Medical - [facility]) Outpatient Attender: Nancy 12/30/2018 02:50:00 [facility] - [facility]) Insurance Providers Payer name Policy type Policy ID Covered Covered democrat's Policy P lexus / Coverage democrat ID relationship to Cruz Inf ormation type cruz ASAEL [id number] SP [id number] EXCHANGE ASAEL [id number] SP [id number] EXCHANGE COMM [id number] Self [id number] ASAEL HEALTH [id number] SP [id number] NON CAP FIDL [place] [id number] 1 [id number] Care SC Individual COMM [id number] Self [id number] COMM [id number] Self [id number] COMM [id number] Self [id number] COMM [id number] Self [id number] COMM [id number] Self [id number] 700 ASAEL [id number] EXCHANGE ASAEL CARE [id number] 1 [id number] ASAEL [id number] SP [id number] 700 EXCHANGE ASAEL [id number] SP [id number] 700 EXCHANGE ASAEL [id number] SP [id number] 700 EXCHANGE MAGNACARE [id number] SELF [id number] Problems, Conditions, and Diagnoses Code Display Name Description Problem Type Effective Data Dates Source(s) Z11.59 Encounter for Encounter for Diagnosis 10/24/2019 [facility] screening for other laboratory testing 09:50:00 AM ([facility] viral diseases for COVID-19 virus EDT [facility]) N52.9 Male erectile Male erectile Diagnosis 09/02/2019 [place] dysfunction, dysfunction, 08:17:00 AM Health - unspecified unspecified EDT [facility] I73.9 Peripheral vascular Peripheral vascular Diagnosis 020 [place] disease, disease, 08:17:00 AM Health - unspecified unspecified EDT [facility] R99 Ill-defined and Ill-defined and Diagnosis 08/31/2019 Nuva nce unknown cause of unknown cause of 11:04:00 AM H ealth - mortality mortality EDT [facility] Z20.828 Contact with and Contact with and Diagnosis 08/15/2019 NE XTGEN (suspected) (suspected) 10:13:00 AM ([facility] exposure to other exposure to other EDT [facility] viral communicable viral communicable [facility] diseases [facility]) I70.213 Atherosclerosis of Atherosclerosis of Diagnosis 0 [place] knik arteries of knik arteries of 09:12:00 AM Health - extremities with extremities with EDT Va ssar intermittent intermittent [place] claudication, claudication, Medical bilateral legs bilateral legs Center Surgeries/Procedures Procedure Description Date Indications Data Source(s) OFFICE/OUTPATIENT OFFICE/OUTPATIENT 10/24/2019 NEXTG EN ([facility] VISIT EST VISIT EST 12:00:00 AM [facility]) SARS-COV-2 COVID-19 SARS-COV-2 COVID-19 08/15/2019 N EXTGEN ([facility] AP HTTA AP HTTA 12:00:[address] [facility] Results ID Date Data Source [id number] 12/22/2019 10:30:00 AM EDT [facility] Name Value Range Interpretation Description Data Sup porting Code Source(s) Document(s ) SARS [facility] coronavirus 2 RNA This lab was ordered by JUAN R ROCHA and reported by [facility]. ID Date Data Source [id number] 11/25/2019 02:30:00 PM EDT [facility] Name Value Range Interpretation Code Description Data Janel rce(s) Supporting Document(s ) SARS-COV-2 [facility] RNA RESP Diagnostics QL ARTURO+PROBE This lab was ordered by [facility] and reported by [employer] JEAN MARIE. ID Date Data Source [id number] 10/24/2019 10:11:00 AM EDT [facility] Name Value Range Interpretation Code Description Data Janel rce(s) Supporting Document(s ) COV2 [facility] This lab was ordered by [facility] [place] and reported by [facility] - Jean Marie. ID Date Data Source [id number] 09/11/2019 11:28:00 AM EDT [facility] Name Value Range Interpretation Description Data Sup porting Code Source(s) Document(s ) SARS [facility] coronavirus 2 RNA This lab was ordered by [facility] See green d reported by [facility]. ID Date Data Source [id number] 09/02/2019 12:23:00 PM EDT [facility] Patient Name: ANTOINETTE ANDINO, PAULMRN: [id number] Interventional RadiologyACCESSION EXAM DATE/TIME PROCEDURE ORDERING PROVIDER [id number] 09/02/2019 12:06 EDT IR ANGIO EX ANNALISE [...] retrograde, over micropuncture sheath placed placed a Andrae tson wire subsequent 5 Salvadorean sheath and a flush catheter in the [...] an Amplatz wire we placed a 7 Salvadorean 45 cm destination malik th in the left SFA. We cross the lesion with a Bentson wire the SFA. We balloon angio plastied [...] a glide catheter. We exchanged to a [place] core wire. We u sed a 3 [...] Supporting Document(s ) ID Date Data Source [id number] 09/02/2019 10:07:00 AM EDT [facility] [id number]} [facility] Patient: ANTOINETTE ANDINO, F RANK Age: 58 years Sex: Male [...] (SEP 01 08:59)SpO2 96 % (SEP 01 08:59)Heig ht 170 cm (SEP 01:59)BMI 31.45 (SEP 01 08:59), Measurements from [facility] : Measurements 09/02/2019 8:59 EDT Clinical Weight 90.9 kg Body Mass Index Measured 31.45 kg/m2 Height/Length Measured 170 cm Past Medical History/Problems: All ProblemsBipolar 1 disorder / [id number] / ConfirmedCOPD (chronic obstructive pul monary disease) / [id number] / ConfirmedPVD (peripheral vascular disease) / [id number] 16 / Confirmed. CRI - baseline Cr 1.3 Procedure history: Angiogram performed by Savage Beltran MD on 08/10/2010 at 49 Years.Rt knee after accident.Right ankle after accident.Left knee after accident.. Social History Social and Psychosocia l HabitsAlcohol (Use Alcohol Screen Below for Admitted Pts)06/11/2019 Use: Past Comm ent: has been in recovery for 16 yrs - 06/11/2019 11:37 - Riya Price LPN GT [id number]/02/2019 Has the patient smoked? Former smoker Concerns about tobacco us e in household: No Type: Cigarettes Started at age: 19.0 Years Stopped at age: 53 Y earsBlood Yttroivqjm83/29/2020 Blood Management Level Accepts blood. Result s [...] MAC. ASA Classification: III.I73.9Peripheral vascular disease, un wfikfjlrdW60.9Male erectile dysfunction, [id number], extremity, bilateral, radiological supervision and interpretation09/02/2019 08:47:09 Commen t by: Monica Aguirre ins verified info got verbal consent 09/02/2019 08:35:46 Comment by: Monica Aguirre cr edit card 08:02:39 Comment by: Beryl Dunn Exch. verified, Co-Payment $10 0.00 for OP IVR. $600 rem of $1200 family ded. PE unavailable. [phone] Name Value Range Interpretation Code Description Data Janel rce(s) Supporting Document(s ) ID Date Data Source [id number] 09/02/2019 10:08:00 AM EDT [facility] Name Value Range Interpretation Code Description Data [facility] rce(s) Supporting Document(s ) INR 0.9 ratio 0.9-1.2 NO [facility] Indications INRProphylaxis of venous thromo-embolism: Non-hip surgery..... ..........................1.5 - 2.5 Hip surgery................................. ..2.0 - 3.0Deep Vein Thrombosis or Pulmonary Embolism........2.0 - 3.0Prevention of s ystemic embolism in valvular heart disease, tissue prosthetic heart valvesor acute [place].......................................2.0 - 3.5Prevention of embolism in mechanical heartvalves or recurrent systemic embolism.............3.0 - 4.5 PT 10.9 second(s) 10.2-12.9 NO [place] [facility] ID Date Data Source [id number] 09/02/2019 10:07:00 AM EDT [facility] Name Value Range Interpretation Description Data Sup porting Code Source(s) Document(s ) Glucose Lvl 109 65-99 HI [place] mg/dL [facility] BUN 13.2 6.0-20.0 NO [place] mg/dL [facility] Creatinine 1.28 0.70-1.2 HI [place] mg/dL 0 [facility] BUN/Creat 10.3 7.0-29.0 NO [place] Ratio ratio [facility] Sodium Lvl 141 136-145 NO [place] mmol/L [facility] Potassium Lvl 3.9 3.5-5.1 NO [place] mmol/L [facility] Chloride 114 98-107 HI [place] mmol/L [facility] CO2 21 23-29 LO [place] mmol/L [facility] AGAP 5 5-15 NO [place]ance [facility] Calcium Lvl 9.4 8.6-10.0 NO [place] mg/dL [facility] Total Protein 5.9 6.0-8.3 LO [place] gm/dL [facility] Albumin Lvl 3.5 3.5-5.0 NO [place] gm/dL [facility] Glob 2.4 2.0-4.5 NO [place] gm/dL [facility] A/G Ratio 1.5 1.0-2.2 NO [place] ratio [facility] Bili Total 0.4 0.3-1.2 NO [place] mg/dL [facility] Alk Phos 72 IU/L 38-126 NO [facility] AST 15 IU/L 15-41 [facility] ALT 17 IU/L 7-40 [facility] ID Date Data Source [id number] 09/02/2019 10:00:00 AM EDT [facility] Added by Discern Rule GLB_ADD_GFR_CMP Name Value Range Interpretation Code Description Data Janel rce(s) Supporting Document(s ) eGFR-AA 70 >=60 [facility] mL/min/1.[address] The MDRD 4-Variable IDMS traceable Equat [...] 60-89 Mild decrease*G3a 45-59 Mild to moderate blokkjriI0w 30-44 Moderate to severe decreaseG4 15-29 Severe decreaseG5 14 or less Kidney failure eGFR-ARTURO 58 mL/min/1.73m2 >=60 [facility] The MDRD 4-Variable IDMS traceable [...] 60-89 Mild decrease*G3a 45-59 Mild to moderate rhaqlzexJ8j 30-44 Moderate to severe decreaseG4 15-29 Severe decreaseG5 14 or less Kidney failure ID Date Data Source [id number] 09/02/2019 09:52:00 AM EDT [facility] Name Value Range Interpretation Description Data Sup porting Code Source(s) Document(s ) WBC 5.1 4.0-10.5 NO [place] x10(3)/[facility] RBC 4.97 4.70-6.00 NO [place] x10(6)/[facility] Hgb 13.3 13.5-17.0 LO [place] gm/dL [facility] Hct 41.8 % 38.0-51.0 NO [facility] MCV 84 fL 80-98 NO [facility] MCH 26.8 pg 26.0-34.0 NO [facility] MCHC 31.9 32.0-36.0 LO [place] gm/dL [facility] RDW 13.7 % 11.0-15.0 NO [facility] Platelet 179 150-400 NO [facility] x[facility](3[facility] MPV 8.5 fL 8.5-13.0 NO [facility] ID Date Data Source [id number] 08/31/2019 11:32:00 AM EDT [facility] Name Value Range Interpretation Description Data Sup porting Code Source(s) Document(s ) SARS CoV-2 [facility] Interpretation This lab was ordered by [facility] and reported by [employer]. ID Date Data Source [id number] 08/31/2019 11:32:00 AM EDT [facility] Name Value Range Interpretation Code Description Data Janel rce(s) Supporting Document(s ) 2019-nCoV [facility] RNA XXX ARTURO+probe- Imp This lab was ordered by [employer] [facility] and reported by [facility]. ID Date Data Source [id number] 09/01/2019 03:07:00 AM EDT [facility] Name Value Range Interpretation Code Description Data Janel rce(s) Supporting Document(s ) COVID-19 NA [facility] SARS CoV-2 RNA NEGATIVE (NOT DETECTED)Ne gative [...] thorized by FDA under an Emergency UseAuthorization (EUA).[facility] [place] [facility] aboratory is certified under the ClinicalLaboratory Improvement Amendment s of 1988 (CLIA), 42 U.S.C. [id number], to perform high complexity tests.Performing Lab : [place] [employer] [place], [place] [address]Medical Directo r:Dr. Chidi You [facility] CLIA Number:[id number] ID Date Data Source [id number] 08/15/2019 12:00:00 AM EDT [facility] ([facility]) Name Value Range Interpretation Code Description Data Janel rce(s) Supporting Document(s ) COVID19 [facility] Results ([facility]) This lab was ordered by [facility] and reported by [facility]. ID Date Data Source [id number] 08/09/2019 11:55:00 AM EDT [facility] Patient Name: ANTOINETTE ANDINO, PAULMRN: [id number] Computed TomographyACCESSION EXAM DATE/TIME PROCEDURE ORDERING PROVIDER [id number] 08/09/2019 09:53 EDT CTA Abdomen Aorta Devin ANDINO, Savage Auth (Verified) ANNALISE Lower EXT MReason For Exam(CTA Ab domen Aorta ANNALISE Lower EXT) Atherosclerosis of knik arteries of extremities withinter mittent claudication, bilateral [...] Cy Key DO 08/09/19 11:55 Transcribed by: DIOGO Name Value Range Interpretation Code Description Data Janel rce(s) Supporting Document(s ) Procedure Social History Code Duration Value Status Description Data Source(s ) Smoking 06/11/2019 Ex-smoker completed Ex-smoker (finding) [facility] - 11:36:50 AM EDT (finding) [facility]
[2019-12-26 10:28] LABS: BILIRUBIN,TOTAL 0.6 mg/dl (0.2-1); CALCIUM 9.1 mg/dl (8.5-10); CREATININE 1.3 mg/dl (0.55-1.3); MAGNESIUM 2.3 mg/dL (1.8-2.4); POTASSIUM 4.3 mmol/L (3.5-5.1); TOT PROT 6.3 g/dl (6.4-8.2)
[2019-12-26 10:38] LABS: BASO % 0.3 % (0-2.0); HEMATOCRIT 41.8 % (35.4-49); HEMOGLOBIN 13.3 GM/dl (11.7-16.9); LYMPH % 25.1 % (8-40); MCH 27.6 pg (25.7-33.7); MCHC 31.9 g/dl (32.0-35.9); MEAN CELL VOLUME 86.6 fl (80-96); MEAN PLT VOLUME 7.9 fl (7.5-11.1); MONO % 7.2 % (3.8-10.2); NEUT % 66.4 % (42.8-82.8); PLATELET COUNT 220 K/MM3 (134-434); RBC 4.82 M/mm3 (4.00-5.60); RDW 13.1 % (11.9-15.9); WHITE BLOOD COUNT 5.8 K/mm3 (4.0-10.8)
[2019-12-26 11:36] VITALS: BMI 34.2
[2019-12-26] MEDS ORDERED: KETAMINE HCL 500 MG/10 ML VIAL ONE (12:34)
[2019-12-26 14:07] VITALS: TEMP 98.4
[2019-12-26 14:47] VITALS: BP 126/75; PULSE 74
--- NOTE | 2019-12-26 15:08 | EKG ---
Test Reason : Blood Pressure : / mmHG Vent. Rate : 067 BPM Atrial Rate : 067 BPM P-R Int : 142 ms QRS Dur : 078 ms QT Int : 408 ms P-R-T Axes : 051 044 031 degrees QTc Int : 431 ms NORMAL SINUS RHYTHM NORMAL ECG WHEN COMPARED WITH ECG OF 03-JAN-2019 07:57, NO SIGNIFICANT CHANGE WAS FOUND Confirmed by MI WALKER MD ([id number]) on 12/26/2019 3:08:11 PM Referred By: Butch Olvera Confirmed By:MI WALKER MD
--- NOTE | 2019-12-26 16:11 | HP ---
CHIEF COMPLAINT: Bipolar disorder with depressive features PCP: Dr. Solis, [place], [place] Primary Psychiatrist: Sinan Temple Psychologist: Emelina Sorto, [address] [place] [address] HISTORY OF PRESENT ILLNESS: 58 year-old male, with a PMH significant for peripheral arterial disease s/p right SFA stent, and bipolar disorder. He presents today for ECT. Recent Events: * 3 additional peipheral stents placed August 2019 (Dr. 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: quit 2012, vapes nicotine product Alcohol: no Drugs: no Family history: reviewed and non-contributory Allergies No Known Allergies Allergy (Verified 04/19/19 07:28) HOME MEDICATIONS: Home Medications Medication Instructions Recorded Lamotrigine [Lamictal Xr] 200 mg PO HS 05/11/[address] [place] Carbonate [Eskalith -] 300 mg PO TID 05/11/18 Mirtazapine [Remeron -] 7.5 mg PO HS 05/11/18 Topiramate [Topamax] 50 mg PO HS 05/11/18 Zolpidem Tartrate [Ambien Cr] 12.5 mg PO HS PRN 05/11/18 Propranolol HCl 10 mg PO HS 05/14/18 Acetaminophen [Tylenol -] 1,000 mg PO PRN PRN 12/24/19 Aspirin [Ecotrin] 325 mg PO HS 12/24/19 Atorvastatin Ca [Lipitor] 20 mg PO HS 12/24/19 Cariprazine HCl [Vraylar] 3 mg PO HS 12/24/19 Clopidogrel Bisulfate [Plavix] 75 mg PO HS 12/24/19 Cariprazine HCl [Vraylar] 1.5 mg PO HS 12/26/19 REVIEW OF SYSTEMS CONSTITUTIONAL: Absent: fever, chills, diaphoresis, generalized weakness, malaise, loss of appetite, weight change HEENT: Absent: rhinorrhea, nasal congestion, throat pain, throat swelling, difficulty swallowing, mouth swelling, ear pain, eye pain, visual changes CARDIOVASCULAR: Absent: chest pain, syncope, palpitations, irregular heart rate, lightheadedness, peripheral edema RESPIRATORY: Absent: cough, shortness of breath, dyspnea with exertion, orthopnea, wheezing, stridor, hemoptysis GASTROINTESTINAL: Absent: abdominal pain, abdominal distension, nausea, vomiting, diarrhea, constipation, melena, hematochezia GENITOURINARY: Absent: dysuria, frequency, urgency, hesitancy, hematuria, flank pain, genital pain MUSCULOSKELETAL: Absent: myalgia, arthralgia, joint swelling, back pain, neck pain SKIN: Absent: rash, itching, pallor HEMATOLOGIC/IMMUNOLOGIC: Absent: easy bleeding, easy bruising, lymphadenopathy, frequent infections ENDOCRINE: Absent: unexplained weight gain, unexplained weight loss, heat intolerance, cold intolerance NEUROLOGIC: Absent: headache, focal weakness or paresthesias, dizziness, unsteady gait, seizure, mental status changes, bladder or bowel incontinence PHYSICAL EXAMINATION Vital Signs - 24 hr 12/26/19 12/26/19 12/26/19 11:25 12:50 12:55 Temperature 98.3 F 97.5 F L Pulse Rate 74 97 H 99 H Respiratory 18 20 20 Rate Blood Pressure 112/62 149/73 152/82 O2 Sat by Pulse 98 98 97 Oximetry (%) 12/26/19 12/26/19 12/26/19 13:00 13:05 13:15 Temperature Pulse Rate 101 H 87 77 Respiratory 23 H 14 17 Rate Blood Pressure 143/70 141/72 111/95 O2 Sat by Pulse 96 99 100 Oximetry (%) 12/26/19 12/26/19 12/26/19 13:25 13:40 13:50 Temperature 98.4 F Pulse Rate 75 74 68 Respiratory 1 L 20 16 Rate Blood Pressure 137/81 126/71 116/57 L O2 Sat by Pulse 98 99 97 Oximetry (%) 12/26/19 12/26/19 12/26/19 14:15 14:45 14:47 Temperature Pulse Rate 72 74 74 Respiratory 16 16 16 Rate Blood Pressure 118/64 126/75 126/75 O2 Sat by Pulse 96 98 Oximetry (%) GENERAL: Awake, alert, and fully oriented, in no acute distress. HEAD: Normal with no signs of trauma. EYES: Pupils equal, round and reactive to light, sclera anicteric, conjunctiva clear. LUNGS: Breath sounds equal, clear to auscultation bilaterally. No wheezes, and no crackles. No accessory muscle use. HEART: Regular rate and rhythm, normal S1 and S2 ABDOMEN: Soft, nontender, not distended MUSCULOSKELETAL: Normal range of motion at all joints. No bony deformities or tenderness. No CVA tenderness. UPPER EXTREMITIES: 2+ pulses, warm, well-perfused. No cyanosis. No clubbing. No peripheral edema. LOWER EXTREMITIES: 2+ pulses, warm, well-perfused. No calf tenderness. No peripheral edema. NEUROLOGICAL: Cranial nerves II-XII intact. Normal speech. Laboratory Results - last 24 hr 12/26/19 12/26/19 09:35 09:35 WBC 5.8 RBC 4.82 Hgb 13.3 Hct 41.8 MCV 86.6 MCH 27.6 MCHC 31.9 L RDW 13.1 Plt Count 220 MPV 7.9 Absolute Neuts (auto) 3.8 Neutrophils % 66.4 Lymphocytes % 25.1 Monocytes % 7.2 Eosinophils % 1.0 Basophils % 0.3 Sodium 141 Potassium 4.3 Chloride 113 H Carbon Dioxide 21 Anion Gap 7 L BUN 18.0 Creatinine 1.3 Est GFR (CKD-EPI)AfAm 68.74 Est GFR (CKD-EPI)NonAf 59.31 Random Glucose 100 Calcium 9.1 Magnesium 2.3 Total Bilirubin 0.6 AST 17 ALT 27 Alkaline Phosphatase 86 Total Protein 6.3 L Albumin 4.0 ASSESSMENT/PLAN: 58 year-old male, with a PMH significant for peripheral arterial disease s/p right SFA stent, and bipolar disorder. He presents today for ECT. Cardiac --no cardiac history --Revised Cardiac Risk Index for Pre-Operative Risk: 0 points, 0.4% risk of major cardiac event Pulmonary --no pulmonary history Neurological --no neurological or neurosurgical history; no history of trauma Anesthesia --no reported problems with anesthesia ECT is a low risk procedure. The relative benefits of the planned procedure outweigh the relative risks for this patient at this time. Visit type - Emergency Visit Emergency Visit: No - New Patient This patient is new to me today: Yes Date on this admission: 12/26/19 - Critical Care Critical Care patient: No
== END 2019-12-26 14:50 | disposition home or self-care (01) ==
LOC: FECT 09:28
PROVIDERS: ATTEND Psychiatry & Neurology Psychiatry
PROC: GZB4ZZZ Other Electroconvulsive Therapy (ICD-10-PCS; principal; 2019-12-26 11:00)
DX: F31.62 Bipolar disorder, current episode mixed, moderate (principal)
CPT/HCPCS: 36415; 80053; 83735; 85025; 90870; 93005; 94760

== ENCOUNTER 2020-01-18 13:00 | Emergency (ER) | payer OTHER | END 2020-01-18 13:36 | disposition home or self-care (01) | LOC: JVIRT 13:00 | DX: Z03.818 Encounter for observation for suspected exposure to other biological agents ruled out (principal) | CPT/HCPCS: C9803; Q3014-GT; U0003 ==

== ENCOUNTER 2020-05-11 10:14 | Day surgery (SDC) | payer OTHER ==
[2020-05-11 11:32] VITALS: BMI 32.9
[2020-05-11] MEDS ORDERED: KETAMINE HCL 500 MG/10 ML VIAL ONE (11:47)
[2020-05-11] MEDS ORDERED: MIDAZOLAM HCL 2 MG/2 ML SINGLE DOSE VIAL ONE (11:48)
[2020-05-11 12:28] VITALS: TEMP 97.7
[2020-05-11 13:52] VITALS: BP 112/69; PULSE 61
== END 2020-05-11 13:45 | disposition home or self-care (01) ==
LOC: FECT 10:14
PROVIDERS: ATTEND Psychiatry & Neurology Psychiatry
PROC: GZB4ZZZ Other Electroconvulsive Therapy (ICD-10-PCS; principal; 2020-05-11 12:00)
DX: F32.9 Major depressive disorder, single episode, unspecified (principal)
CPT/HCPCS: 90870; 94760; C9803; U0003

== ENCOUNTER 2020-05-14 07:09 | Day surgery (SDC) | payer OTHER ==
[2020-05-14 07:46] VITALS: BMI 32.9
[2020-05-14] MEDS ORDERED: PROPOFOL 20 ML ONE (10:06)
[2020-05-14] MEDS ORDERED: SUCCINYLCHOLINE CHLORIDE 200 MG/10 ML SYRINGE ONE ×2 (10:06)
[2020-05-14] MEDS ORDERED: KETAMINE HCL 200 MG/20 ML VIAL ONE (10:06)
[2020-05-14] MEDS ORDERED: MIDAZOLAM HCL 2 MG/2 ML SINGLE DOSE VIAL ONE (10:22)
[2020-05-14 11:20] VITALS: TEMP 97.6
[2020-05-14 11:42] VITALS: BP 121/65; PULSE 59
== END 2020-05-14 12:00 | disposition home or self-care (01) ==
LOC: FECT 07:09
PROVIDERS: ATTEND Psychiatry & Neurology Psychiatry
PROC: GZB4ZZZ Other Electroconvulsive Therapy (ICD-10-PCS; principal; 2020-05-14 09:00)
DX: F32.9 Major depressive disorder, single episode, unspecified (principal)
CPT/HCPCS: 90870; 94760

== ENCOUNTER 2020-05-15 07:04 | Day surgery (SDC) | payer OTHER ==
[2020-05-15 07:46] VITALS: BMI 32.9
[2020-05-15] MEDS ORDERED: ONDANSETRON 4 MG/2 ML VIAL ONE (08:56)
[2020-05-15] MEDS ORDERED: DEXAMETHASONE SOD PHOSPHATE 4 MG/1 ML VIAL ONE (08:56)
[2020-05-15] MEDS ORDERED: SUCCINYLCHOLINE CHLORIDE 200 MG/10 ML SYRINGE ONE (08:57)
[2020-05-15] MEDS ORDERED: MIDAZOLAM HCL 2 MG/2 ML SINGLE DOSE VIAL ONE (08:57)
[2020-05-15] MEDS ORDERED: KETAMINE HCL 200 MG/20 ML VIAL ONE (08:57)
[2020-05-15] MEDS ORDERED: PROPOFOL 20 ML ONE (08:59)
[2020-05-15 09:40] VITALS: TEMP 97.8
[2020-05-15 10:22] VITALS: PULSE 88
[2020-05-15 10:49] VITALS: BP 121/79
[2020-05-15] MEDS ORDERED: ONDANSETRON 4 MG/2 ML VIAL IVPUSH PRN (11:06)
== END 2020-05-15 10:25 | disposition home or self-care (01) ==
LOC: FECT 07:04
PROVIDERS: ATTEND Psychiatry & Neurology Psychiatry
PROC: GZB4ZZZ Other Electroconvulsive Therapy (ICD-10-PCS; principal; 2020-05-15 08:30)
DX: F32.9 Major depressive disorder, single episode, unspecified (principal)
CPT/HCPCS: 90870; 94760; C9803; U0003

== ENCOUNTER 2020-05-18 07:02 | Day surgery (SDC) | payer OTHER ==
[2020-05-15 15:23] VITALS: BMI 32.9
[2020-05-18] MEDS ORDERED: KETAMINE HCL 500 MG/10 ML VIAL ONE (08:40)
[2020-05-18] MEDS ORDERED: MIDAZOLAM HCL 2 MG/2 ML SINGLE DOSE VIAL ONE (08:43)
[2020-05-18 11:08] VITALS: BP 123/63; PULSE 61; TEMP 97.8
== END 2020-05-18 10:30 | disposition home or self-care (01) ==
LOC: FECT 07:02
PROVIDERS: ATTEND Psychiatry & Neurology Psychiatry
PROC: GZB4ZZZ Other Electroconvulsive Therapy (ICD-10-PCS; principal; 2020-05-18 09:00)
DX: F32.9 Major depressive disorder, single episode, unspecified (principal)
CPT/HCPCS: 90870; 94760

== ENCOUNTER 2020-05-22 06:14 | Day surgery (SDC) | payer OTHER ==
[2020-05-18 14:51] VITALS: BMI 32.9
[2020-05-22] MEDS ORDERED: KETAMINE HCL 500 MG/10 ML VIAL ONE (07:37)
[2020-05-22] MEDS ORDERED: MIDAZOLAM HCL 2 MG/2 ML SINGLE DOSE VIAL ONE ×2 (07:37→07:57)
[2020-05-22 08:16] VITALS: TEMP 98
[2020-05-22 11:07] VITALS: BP 109/74; PULSE 60
[2020-05-22] MEDS ORDERED: ONDANSETRON 4 MG/2 ML VIAL IVPUSH PRN (12:55)
[2020-05-22] MEDS ORDERED: LACTATED RINGERS SOLUTION 1,000 ML IV SCH (13:00)
== END 2020-05-22 10:50 | disposition home or self-care (01) ==
LOC: FECT 06:14
PROVIDERS: ATTEND Psychiatry & Neurology Psychiatry
PROC: GZB4ZZZ Other Electroconvulsive Therapy (ICD-10-PCS; principal; 2020-05-22 08:00)
DX: F32.9 Major depressive disorder, single episode, unspecified (principal)
CPT/HCPCS: 90870; 94760

== ENCOUNTER 2022-04-12 08:42 | Day surgery (SDC) | payer OTHER ==
[~2022-04-12 08:42] MED LIST: LACTATED RINGERS SOLUTION 1,000 ML IV SCH; ONDANSETRON 4 MG/2 ML VIAL IVPUSH PRN
[2022-04-12 09:19] VITALS: BMI 29.7
[2022-04-12 11:24] VITALS: RESP 18
[2022-04-12 12:06] VITALS: TEMP 97.9
[2022-04-12 12:09] VITALS: BP 121/69; PULSE 69
== END 2022-04-12 12:05 | disposition home or self-care (01) ==
LOC: FECT 08:42
PROVIDERS: ATTEND Psychiatry & Neurology Psychiatry
PROC: GZB4ZZZ Other Electroconvulsive Therapy (ICD-10-PCS; principal; 2022-04-12 10:42)
DX: F31.9 Bipolar disorder, unspecified (principal)
CPT/HCPCS: 90870; 93005; 93010; 94760